=== PATIENT | male | born 1950 | race Caucasian/White ===

== ENCOUNTER → 2018-05-17 | Outpatient (CLI) | payer MEDICARE, OTHER ==
[~2018-05-17] VITALS: Ht 177.8 cm; Wt 92.5 kg
[~2018-05-17] MED LIST: CATHETER FLUSH 10 ML SYR IV PRN; REGADENOSON 0.4 MG/5 ML SYR (LEXISCAN) IV ONE
[2018-05-17 09:16] VITALS: BP 156/84
== END ==
LOC: CARD 08:26
PROVIDERS: ATTEND Internal Medicine Interventional Cardiology
DX: I20.8 Other forms of angina pectoris (principal); M79.603 Pain in arm, unspecified; E78.5 Hyperlipidemia, unspecified; I10 Essential (primary) hypertension; R68.84 Jaw pain
CPT/HCPCS: 78452; 93017